=== PATIENT | male | born 1990 | race Two or more races ===

== ENCOUNTER 2017-07-30 12:58 | Emergency (ER) | payer MEDICAID ==
[~2017-07-30] VITALS: Ht 165.1 cm; Wt 68.0 kg
[2017-07-30] MEDS ORDERED: IBUPROFEN 800 MG TAB PO ONE (13:30)
[2017-07-30 14:06] LABS: Basophils # (auto) 0.1 uL; Basophils % (auto) 0.5 % (0.0-2.0); Eosinophils # (auto) 0 uL; Eosinophils % (auto) 0.2 % (0.0-7.0); Hematocrit 48.8 % (41.0-53.0); Hemoglobin 16.5 g/dL (13.5-17.5); Lymphocytes # (auto) 1.6 uL; Lymphocytes % (auto) 15.3 % (10.0-50.0); Mean Corpuscular Hemoglobin 29.7 pg (28.0-32.0); Mean Corpuscular Hgb Conc. 33.7 g/dL (32.0-36.0); Mean Corpuscular Volume 88.1 fL (80.0-100.0); Monocytes # (auto) 0.8 uL; Monocytes % (auto) 7.6 % (0.0-12.0); Neutrophils % (auto) 76.4 % (37.0-80.0); Nucleated Red Blood Cells % 0.1 %; Platelet Count (auto) 299 10^3/uL (140-450); Red Blood Cells 5.54 10^6/uL (4.5-5.90); Red Cell Distribution Width 13.5 % (11.8-14.3); White Blood Cell 10.5 10^3/uL (4.4-10.8)
[2017-07-30 14:21] LABS: Alanine Aminotransferase 43 U/L (16-61); Albumin 4.5 g/dL (3.4-5.0); Anion Gap 12 (5-15); Aspartate Aminotransferase 27 U/L (15-37); BUN/Creatinine Ratio 17.6; Blood Urea Nitrogen 19 mg/dL (7-18); Calcium 9.1 mg/dL (8.5-10.1); Carbon Dioxide 24 mmol/L (21-32); Chloride 100 mmol/L (98-107); GFR African American 107 mL/min; GFR Non-African American 89 mL/min; Glucose 73 mg/dL (74-106); Potassium 3.4 mmol/L (3.5-5.1); Sodium 136 mmol/L (136-145)
[2017-07-30 14:26] LABS: Alkaline Phosphatase 85 U/L (45-117); Bilirubin, Total 0.6 mg/dL (0.2-1.0); Total Protein 8.8 g/dL (6.4-8.2)
[2017-07-30] MEDS ORDERED: POTASSIUM CHL 10% (20 MEQ/15ML) 15ml ORAL SOLN PO ONE (15:45)
[2017-07-30 17:37] VITALS: BP 112/61
== END 2017-07-30 15:42 | disposition home or self-care (01) ==
LOC: ER 12:58
DX: R07.89 Other chest pain (principal)
CPT/HCPCS: 36415; 71045; 80053; 84484; 85025; 93005

== ENCOUNTER 2018-02-05 09:49 | Emergency (ER) | payer SELFPAY ==
[~2018-02-05] VITALS: Ht 165.1 cm; Wt 70.3 kg
[2018-02-05 10:21] VITALS: BP 116/60
== END 2018-02-05 13:00 | disposition home or self-care (01) ==
LOC: ER 09:49
DX: H60.92 Unspecified otitis externa, left ear (principal)